=== PATIENT | female | born 1950 | race Caucasian/White ===

== ENCOUNTER 2017-09-01 07:36 | Day surgery (SDC) | payer OTHER ==
[~2017-09-01 07:36] MED LIST: Acetaminophen TAB* 325 MG PO PRN; Buffered Lidocaine 0.9% SYRIN* 5 ML/SYR SYRINGE INTRADERM ONE; Cyclopentolate 1% OPTH.SOL* 2 ML BTL ONE; Ketorolac 0.5% OPHTH (NF) 0.5 % 5 ML BTL ONE; Lidocaine 1% MPF* 2 ML VIAL ONE; Lidocaine 2% EPI 1:200000 MPF* 20 ML VIAL ONE; Midazolam* 1 MG/ML 2 ML VIAL (2 MG) ONE; Neomycin/Polymy/Dex OPTH.SUSP* MAXITROL 0.1% 5 ML ONE; Phenylephrine 2.5% OPTH.SOL* 2 ML BTL ONE; Povidone Iodine 5% OPTH* 30 ML BTL ONE; Proparacaine 0.5% OPHTH.SOL* 15 ML BTL ONE; acetaZOLAMIDE TAB* 250 MG ONE
[2017-09-01 09:42] VITALS: BP 114/56
--- NOTE | 2017-09-01 11:00 | OP ---
DATE OF OPERATION: 09/01/2017 - [facility] DATE OF : 1950. SURGEON: Chino Leon M.D. PREOPERATIVE DIAGNOSIS: Cataract right eye. POSTOPERATIVE DIAGNOSIS: Cataract right eye. OPERATIVE PROCEDURE: Extracapsular cataract extraction with intraocular lens implant right eye. DESCRIPTION OF PROCEDURE: The patient was brought to the operating room after being given 1/2% Alcaine with epinephrine drops in the preoperative area. The eye was prepped and draped in the usual sterile fashion. Sterile drape and eyelid speculum were placed. Again, topical 1/2% Alcaine with epinephrine was given. A paracentesis incision was made at the 9 o'clock position with the No.75 blade. Clear cornea incision 2.2 x 2.2-mm was created at the 12 o'clock position starting at the anterior limbus using the 2.2-mm keratome. The anterior chamber was irrigated with 0.4 mL of 1% non-preservative intracameral lidocaine and filled with DisCoVisc. A capsulorrhexis was completed using the cystotome and the Utrata forceps. Hydrodissection was performed with balanced salt solution. The lens nucleus was removed with the Phacoemulsification handpiece without incident. Cortex was removed with the irrigation-aspiration handpiece. The capsular bag was re-inflated using DisCoVisc and an [id number] implant was inserted with the shooter, oriented to the 14 degree meridian. Horizontal reference mckenna were made with the patient in the seated position in the preoperative area. The irrigation-aspiration handpiece was used to remove all residual DisCoVisc. The eye was refilled with balanced salt solution and the wound checked and found to be watertight. Topical Maxitrol drops were given. [id number]/[facility] #: [id number] [facility]
== END 2017-09-01 09:36 | disposition home or self-care (01) ==
LOC: OREAST 07:36
PROVIDERS: ATTEND Specialist
DX: H25.11 Age-related nuclear cataract, right eye (principal); H40.023 Open angle with borderline findings, high risk, bilateral; M81.0 Age-related osteoporosis without current pathological fracture; Z87.891 Personal history of nicotine dependence; M19.90 Unspecified osteoarthritis, unspecified site
CPT/HCPCS: A9270-GY; J2250; V2787

== ENCOUNTER 2017-09-08 07:12 | Day surgery (SDC) | payer OTHER ==
[~2017-09-08 07:12] MED LIST changes: -Cyclopentolate 1% OPTH.SOL* 2 ML BTL ONE; -Ketorolac 0.5% OPHTH (NF) 0.5 % 5 ML BTL ONE; -Lidocaine 1% MPF* 2 ML VIAL ONE; -Lidocaine 2% EPI 1:200000 MPF* 20 ML VIAL ONE; -Midazolam* 1 MG/ML 2 ML VIAL (2 MG) ONE; -Neomycin/Polymy/Dex OPTH.SUSP* MAXITROL 0.1% 5 ML ONE; -Phenylephrine 2.5% OPTH.SOL* 2 ML BTL ONE; -Povidone Iodine 5% OPTH* 30 ML BTL ONE; -Proparacaine 0.5% OPHTH.SOL* 15 ML BTL ONE; -acetaZOLAMIDE TAB* 250 MG ONE
[2017-09-08] MEDS ORDERED: Midazolam* 1 MG/ML 2 ML VIAL (2 MG) ONE ×2 (07:15→07:16)
[2017-09-08] MEDS ORDERED: Lidocaine 2% EPI 1:200000 MPF* 20 ML VIAL ONE (07:28)
[2017-09-08] MEDS ORDERED: Lidocaine 1% MPF* 2 ML VIAL ONE (07:28)
[2017-09-08] MEDS ORDERED: Cyclopentolate 1% OPTH.SOL* 2 ML BTL ONE (07:28)
[2017-09-08] MEDS ORDERED: acetaZOLAMIDE TAB* 250 MG ONE (07:28)
[2017-09-08] MEDS ORDERED: Proparacaine 0.5% OPHTH.SOL* 15 ML BTL ONE (07:29)
[2017-09-08] MEDS ORDERED: Neomycin/Polymy/Dex OPTH.SUSP* MAXITROL 0.1% 5 ML ONE (07:29)
[2017-09-08] MEDS ORDERED: Ketorolac 0.5% OPHTH (NF) 0.5 % 5 ML BTL ONE (07:29)
[2017-09-08] MEDS ORDERED: Phenylephrine 2.5% OPTH.SOL* 2 ML BTL ONE (07:29)
[2017-09-08] MEDS ORDERED: Povidone Iodine 5% OPTH* 30 ML BTL ONE (07:29)
[2017-09-08 09:59] VITALS: BP 117/67
--- NOTE | 2017-09-08 12:55 | OP ---
DATE OF OPERATION: 09/08/2017 - [facility] DATE OF : 1950. SURGEON: Chino Leon M.D. PREOPERATIVE DIAGNOSIS: Cataract left eye. POSTOPERATIVE DIAGNOSIS: Cataract left eye. OPERATIVE PROCEDURE: Extracapsular cataract extraction with intraocular lens implant left eye. DESCRIPTION OF PROCEDURE: The patient was brought to the operating room after being given 1/2% Alcaine with epinephrine drops in the preoperative area. The eye was prepped and draped in the usual sterile fashion. Sterile drape and eyelid speculum were placed. Again, topical 1/2% Alcaine with epinephrine was given. A paracentesis incision was made at the 3 o'clock position with the No.75 blade. Clear cornea incision 2.2 x 2.2-mm was created at the 6 o'clock position starting at the anterior limbus using the 2.2-mm keratome. The anterior chamber was irrigated with 0.4 mL of 1% non-preservative intracameral lidocaine and filled with DisCoVisc. A capsulorrhexis was completed using the cystotome and the Utrata forceps. Hydrodissection was performed with balanced salt solution. The lens nucleus was removed with the Phacoemulsification handpiece without incident. Cortex was removed with the irrigation-aspiration handpiece. The capsular bag was re-inflated using DisCoVisc and an [id number] [id number] implant was inserted with the shooter. The irrigation-aspiration handpiece was used to remove all residual DisCoVisc. The eye was refilled with balanced salt solution and the wound checked and found to be watertight. Topical Maxitrol drops were given. [id number]/[facility] #: [id number] [facility]
== END 2017-09-08 10:01 | disposition home or self-care (01) ==
LOC: OREAST 07:12
PROVIDERS: ATTEND Specialist
DX: H25.12 Age-related nuclear cataract, left eye (principal); H40.023 Open angle with borderline findings, high risk, bilateral; M35.00 Sjogren syndrome, unspecified; R94.6 Abnormal results of thyroid function studies; E78.5 Hyperlipidemia, unspecified; M81.0 Age-related osteoporosis without current pathological fracture; Z87.891 Personal history of nicotine dependence; M19.90 Unspecified osteoarthritis, unspecified site
CPT/HCPCS: A9270-GY; J2250; V2632

== ENCOUNTER 2018-10-25 08:59 | Emergency (ER) | payer OTHER ==
--- OUTSIDE RECORDS SUMMARY | 2018-10-25 09:15 | XMS REPORT | Continuity of Care Document ---
:1950 External Reference #:[id number] Author Name Chino Leon M.D. Address [address] [place] [address] Care Team Providers Name Role Phone Edwina Billings M.D. Primary Care Physician Unavailable Payers Date Identification Numbers Payment Provider Subscriber Policy Number: [id number] [employer] Ppo/Pos/Epo/Nap [employer] Number: [id number] [id number] PayID: [id number] [place] [address] Advance Directives Description No Information Available Problems Date Description Provider Status Onset: Headache Active Onset: 11/08/2015 Nuclear senile cataract Michelle Ford O.D. Active Onset: 11/08/2015 Tear film insufficiency Michelle Ford O.D. Active Onset: 11/08/2015 Myopia Michelle Ford O.D. Active Onset: 11/08/2015 Presbyopia Michelle Ford O.D. Active Onset: 11/08/2015 Regular astigmatism Michelle Ford O.D. Active Onset: 02/18/2017 Open-angle glaucoma - borderline Rajan Ibarra M.D. Active Onset: 07/20/2017 Open angle with borderline findings, Rajan Ibarra M.D. Active high risk, bilateral Onset: 09/09/2017 Presence of intraocular lens Chino Leon M.D. Active Onset: 10/04/2017 FH: Glaucoma Chino Leon M.D. Active Onset: 12/28/2017 Other secondary cataract, bilateral Chino Leon M.D. Active Family History Date Family Member(s) Observation Comments Father Cancer Father Glaucoma Mother Cancer First Sister Macular Pucker Social History Type Date Description Comments Sex Unknown Marital Status Legal Status: Occupation [employer] Work Status Retired ETOH Use Rarely consumes alcohol Tobacco Use Start: Unknown Patient has never smoked Recreational Drug Use Denies Drug Use Smoking Status Reviewed: 10/04/18 Patient has never smoked Allergies, Adverse Reactions, Alerts Date Description Reaction Status Severity Comments 10/04/2017 Codeine Active 11/04/2015 NKDA Inactive Medications Medication Date Status Form Strength Qnty SIG Indications Ordering Provider Similasan Dry 09/01/ Active Solution once a Chino Wisdom Eye Relief 2018 day Michelle Leon Vitamin D3 / Active Tablets 1000Unit Unknown 0000 Vitamin K2 / Active Capsules 100mcg Unknown 0000 Fish Oil / Active Capsules 1000mg 1 by Unknown 0000 mouth every day [employer] / Active Unknown Supplement 0000 Ciprofloxacin 08/27/ Hx Solution 0.3% 10ml instill Chino Wisdom HCL 2018 - one drop Arleo, 09/11/ in the M.D. 2018 right eye three times a day, start the day before surgery Ketorolac 08/27/ Hx Solution 0.5% 10ml 1 drop Chino Wisdom Tromethamine 2018 - left eye Arleo, 10/03/ twice a M.D. 2018 day Prednisolone 08/27/ Hx Suspension 1% 15ml 1 drop Chino Wisdom Acetate 2018 - left eye Arleo, 10/03/ twice a M.D. 2018 day Indocin / Hx Suspension 25mg/5ML Billings, 0000 - Edwina M.D. 2016 Immunizations Description No Information Available Vital Signs Date Vital Result Comment 01/17/2018 4:40pm BP Systolic 109 mmHg BP Diastolic 64 mmHg Heart Rate 78 /min Respiratory Rate 16 /min 01/03/2018 3:57pm BP Systolic 104 mmHg BP Diastolic 69 mmHg Heart Rate 80 /min Results Description No Information Available Procedures Date Code Description Status 01/17/2018 15009 Remove Secondary Cataract, Laser (Yag) Completed 01/03/2018 93179 Remove Secondary Cataract, Laser (Yag) Completed 12/28/2017 62947 Est Patient Intermediate Exam Completed 09/08/2017 66869 Extracapsular Cataract Extraction W/Intraocular Lens Completed 09/01/2017 05363 Extracapsular Cataract Extraction W/Intraocular Lens Completed 08/27/2017 69156 Ophthalmic Biometry Completed 08/27/2017 78212 Ophthalmic Biometry Completed 08/27/2017 34158 Scanning Computerized Opthalmic Diagnostic Posterior Seg Completed Retina 08/27/2017 66378 Computerized Corneal Topography Completed 07/29/2017 46880 Scanning Computerized Ophthalmic Diagnostic Imag Posterior Completed Seg On 07/29/2017 38528 Visual Field Exam Extended Completed 07/20/2017 44457 Est Patient Comprehensive Exam Completed 02/18/2017 84694 Est Patient Comprehensive Exam Completed 02/18/2017 41367 Determination Of Refractive State Completed 11/08/2015 51419 Determination Of Refractive State Completed 11/08/2015 57117 Est Patient Comprehensive Exam Completed 02/13/2014 72004 Est Patient Comprehensive Exam Completed 02/10/2012 37209 Determination Of Refractive State Completed 02/10/2012 77118 Est Patient Comprehensive Exam Completed 01/06/2010 09069 Determination Of Refractive State Completed 01/06/2010 68403 Est Patient Comprehensive Exam Completed 10/28/2007 48277 Determination Of Refractive State Completed 10/28/2007 07709 Est Patient Comprehensive Exam Completed 03/11/2006 18071 Determination Of Refractive State Completed 03/11/2006 39716 Est Patient Intermediate Exam Completed Encounters Type Date Location Provider Dx Diagnosis Office Visit 08/27/2017 Chino Leon, Chino Leon, H25.11 Age- related 11:30a , ankur Martinez nuclear cataract, right eye H25.12 Age-related nuclear cataract, left eye H40.023 Open angle with borderline findings, high risk, bilateral Office Visit 07/29/2017 1:15p Chino Tolentino H40.023 Open angle with MD Edward, ankur Ibarra M.D. borderline findings, high risk, bilateral H25.13 Age-related nuclear cataract, bilateral Plan of Treatment 10/04/2018 - Chino Leon M.D.H04.123 Dry eye syndrome of bilateral lacrimal glandsComments:Smoking can increase the risk of developing or worsening any eye related disease, as well as affect your overall health. If you are a smoker, we strongly recommend that you quit.If you are not a smoker, we strongly recommend that you do not start. Both of your eyes appear to be dry. Use artificial tears as directed. You can use the tears more often if you are reading a book or are on the computer,as we tend to blink less, making our eyes dry out more.[facility] offers a few items in our optical department to help alleviate dry eye symptoms. Systane and Refresh are good brands of tearsyou can use. You can pick these up at any pharmacy and they do not require a prescription.Follow up:1 Year Follow Up You can expect to have your eyes dilated at your next visit. If Dr. Leon orders any additional testing , it may require extra time. We recommend that you bring sunglasses, as dilationdrops often make you light sensitive until they wear off. We always recommend you bring someone to drive you home if you are uncomfortable driving with your eyes dilated. If you have any questions before your next visit, feel free to call our office at .A83.078 Family history of glaucomaComments:Having a family history of glaucoma is a risk factor for the possibility of you developing glaucoma.However, having a family history does not mean you show any signs of glaucoma now, or will develop glaucoma in the future. It is important that you have a dilated eye exam annually, because even thoughglaucoma is a treatable disease, it does not present itself with any signs or symptoms.Z96.1 Presence of intraocular lensComments:The artificial lens implants in both eyes appear to be stable at this time.
--- NOTE | 2018-10-25 10:06 | ED ---
Back Pain - HPI Summary HPI Summary: A 68 y/o F presents to ED with c/o severe low, central back pain onset 0030 that woke her from sleep. She took Alleve at 0200 and used a heating pad, to no relief. The pain is constant. She states she is generally healthy, and denies any known aortic issues. Associated sx: urinary and bowel frequency, chills. Denies: fever, hematuria, incontinence. She notes that yesterday she was holding her grandchild, and the day before that she was in the car for several hours. Allergies discussed. - History of Current Complaint Chief Complaint: EDBackInjuryPain Stated Complaint: WOKE UP WITH EXTREME LOWER BACK PAIN PER PT Time Seen by Provider: 10/25/18 09:46 Hx Obtained From: Patient, Family/Archivist Political History, Medical Records Onset/Duration: Sudden Onset, Lasting Hours, Still Present Onset/Duration: Started Hours Ago, Atraumatic, Still Present Timing: Constant Back Pain Location: Is Discrete @ - low midline back Severity Initially: Severe Severity Currently: Severe Pain Intensity: 8 Pain Scale Used: 0-10 Numeric Aggravating Symptom(s): Nothing Associated Signs And Symptoms: Positive: Other - pos: chills, urinary/bowel frequency. neg: hematuria. Negative: Fever, Bladder Incontinence, Bowel Incontinence - Allergies/Home Medications Allergies/Adverse Reactions: Allergies Allergy/AdvReac Type Severity Reaction Status Date / Time codeine Allergy Nausea And Verified 10/25/18 09:08 Vomiting PMH/Surg Hx/FS Hx/Imm Hx Previously Healthy: No History: Reports: Hx Kidney Stones Musculoskeletal History: Reports: Hx Arthritis - left hand Sensory History: Reports: Hx Cataracts - both, Hx Contacts or Glasses - glasses Denies: Hx Hearing Aid Opthamlomology History: Reports: Hx Cataracts - both, Hx Contacts or Glasses - glasses Neurological History: Reports: 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 tonsillectomy as a child. right thumb repair 1976. tubal ligation 1984 approx Hx Anesthesia Reactions: Yes - gets severe nause from general anesthesia Infectious Disease History: No Infectious Disease History: Denies: Traveled Outside the [place] in Last 30 Days - Family History Family History: Breast CA: grandmother - Social History Occupation: Retired Lives: With Family Alcohol Use: Occasionally Hx Substance Use: No Substance Use Type: Reports: None Hx Tobacco Use: Yes Smoking Status (MU): Former Smoker Amount Used/How Often: social smoker Review of Systems Positive: Chills. Negative: Fever Positive: frequency - urinary and bowel. Negative: hematuria, incontinence Musculoskeletal: Other - pos: lower back pain All Other Systems Reviewed And Are Negative: Yes Physical Exam - Summary Physical Exam Summary: GENERAL: Patient is a well-developed and nourished female who is lying comfortable in the stretcher. Patient is not in any acute respiratory distress. HEAD AND FACE: Normocephalic EYES: PERRLA, EOMI x 2. EARS: Hearing grossly intact. MOUTH: Oropharynx within normal limits. NECK: Supple, trachea is midline, no adenopathy, no JVD, no carotid bruit. CHEST: Symmetric, no tenderness at palpation LUNGS: Clear to auscultation bilaterally. No wheezing or crackles. CVS: Regular rate and rhythm, S1 and S2 present, no murmurs or gallops appreciated. ABDOMEN: Soft, non-tender. Bowel sounds are normal. No abdominal abnormal pulsations. EXTREMITIES: Full ROM in all major joints, no edema, no cyanosis or clubbing. Unable to reproduce back tenderness. NEURO: Alert and oriented x 3. No acute neurological deficits. Speech is normal and follows commands. SKIN: Dry and warm Triage Information Reviewed: Yes Vital Signs On Initial Exam: Initial Vitals Temp Pulse Resp BP Pulse Ox 98.6 F 83 18 151/87 99 10/25/18 09:04 10/25/18 09:04 10/25/18 09:04 10/25/18 09:04 10/25/18 09:04 Vital Signs Reviewed: Yes Diagnostics - Vital Signs Vital Signs Temp Pulse Resp BP Pulse Ox 10/25/18 09:04 98.6 F 83 18 151/87 99 - Laboratory Result Diagrams: 10/25/18 11:24 10/25/18 11:24 Lab Statement: Any lab studies that have been ordered have been reviewed, and results considered in the medical decision making process. - CT ABD/PEL CT CT Interpretation Completed By: Radiologist Summary of CT Findings: IMPRESSION: Left hydronephrosis and hydroureter with a 5 mm calculi wrist above the left ureterovesicular junction. Right kidney is unremarkable. The remainder of the abdomen and pelvis is unremarkable. Calcified granuloma in the right lung base is noted. ED provider has reviewed this report. Re-Evaluation - Re-Evaluation 1 Re-Evaluation Time: 11:03 Change: Unchanged Comment: Discussing UA results. 2 Re-Evaluation Time: 12:17 Change: Unchanged Comment: Patient is still having pain, will order morphine. 3 Re-Evaluation Time: 13:10 Change: Unchanged Comment: Pt still has the same level of pain as previous re-eval. 4 Re-Evaluation Time: 14:18 Change: Unchanged Comment: Pain is still present. 5 Re-Evaluation Time: 15:15 Change: Improved Comment: Pt's pain has improved after tramadol. Back Pain Course/Dx - Course Course Of Treatment: Pt is a 68 y/o F presenting with severe low, central back pain onset 0030 this date that woke her from sleep. She took Alleve at 0200 at home to no relief. UA results show 1+ protein, trace ketones, 2+ blood, 2+ RBC , ascorbic acid present. ABD/PEL CT shows "Left hydronephrosis and hydroureter with a 5 mm calculi wrist above the left ureterovesicular junction. Right kidney is unremarkable. The remainder of the abdomen and pelvis is unremarkable. Calcified granuloma in the right lung base is noted.". The patient will be discharged. I discussed results with patient and she reports feeling better. She is hemodynamically stable and safe for discharge. Strict return precautions given and she will otherwise follow up with her PCP and urology. - Diagnoses Provider Diagnoses: Kidney stone Discharge - Sign-Out/Discharge Documenting (check all that apply): Patient Departure - D/C Patient Received Moderate/Deep Sedation with Procedure: No - Discharge Plan Condition: Stable Disposition: HOME Prescriptions: Ondansetron ODT TAB* [Zofran 4 MG Odt TAB*] 4 mg PO Q8H PRN #12 tab.odt PRN Reason: Nausea oxyCODONE/Acetamin 5/325 MG* [Percocet 5/325 TAB*] 1 tab PO Q6H PRN #15 tab MDD 4 PRN Reason: Pain Tamsulosin HCl [Flomax] 0.4 mg PO DAILY #30 cap.er.24h Patient Education Materials: Oxycodone/Acetaminophen (By mouth), Ondansetron ( By mouth), Tamsulosin (By mouth), Kidney Stones (ED) Referrals: Edwina Billings MD [Primary Care Provider] - 3 Days Ozzy Russell MD [Medical Doctor] - 3 Days Additional Instructions: Follow up with Dr. Russell, urology, in 3 days as well as with your primary care provider. RETURN TO THE EMERGENCY DEPARTMENT FOR CHANGING OR WORSENING SYMPTOMS. - Billing Disposition and Condition Condition: STABLE Disposition: Home - Attestation Statements Document Initiated by Guerreroiblynne: Yes Documenting Scribe: Olivia Almaraz Provider For Whom Scribe is Documenting (Include Credential): Dr. Nimral Alvarez MD Scribe Attestation: Lindsey, Olivia Almaraz, scribed for Dr. Nirmal Alvarez MD on 10/25/18 at 1819. Scribe Documentation Reviewed: Yes Provider Attestation: The documentation as recorded by the Olivia aldridge accurately reflects the service I personally performed and the decisions made by me, Dr. Nirmal Alvarez MD Status of Scribe Document: Viewed
[2018-10-25] MEDS ORDERED: traMADol TAB* 50 MG PO ONE (10:39)
[2018-10-25 10:52] LABS: Urine Appearance Cloudy; Urine Bacteria Absent (Absent); Urine Bilirubin Negative (Negative); Urine Blood 2+ (Negative); Urine Color Yellow; Urine Glucose Negative (Negative); Urine Ketones Trace (Negative); Urine Nitrite Negative (Negative); Urine Protein 1+(30 mg/dL) (Negative); Urine Red Blood Cell 2+(6-10/hpf) (Absent); Urine Specific Gravity 1.021 (1.010-1.030); Urine Urobilinogen Negative (Negative); Urine White Blood Cell Trace(0-5/hpf) (Absent)
[2018-10-25] MEDS ORDERED: NS 0.9% 1000 ML** 1,000 ML IV ONE ×2 (10:59→12:50)
[2018-10-25] MEDS ORDERED: Ondansetron INJ* 2 MG/ML VIAL IV ONE ×2 (11:00→12:15)
[2018-10-25] MEDS ORDERED: fentaNYL* 50 MCG/ML 2 ML VIAL (100 MCG VIAL) IV SLOW PU ONE (11:01)
[2018-10-25 11:36] LABS: ABS Basophils 0.1 10^3/ul (0-0.2); ABS Eosinophils 0 10^3/ul (0-0.6); ABS Lymphocytes 0.9 10^3/ul (1.0-4.8); ABS Monocytes 0.6 10^3/ul (0-0.8); ABS Neutrophils 9.1 10^3/ul (1.5-7.7); ABS Nucleated RBC 0 10^3/ul; Eosinophil % 0.1 %; Hematocrit 37 % (35-47); Hemoglobin 12.5 g/dl (12.0-16.0); Lymphocyte % 8.8 %; Mean Corpuscular HGB Conc 33 g/dl (31-36); Mean Corpuscular Hemoglobin 30 pg (27-31); Mean Corpuscular Volume 90 fL (80-97); Mean Platelet Volume 7.9 fL (7.4-10.4); Nucleated Red Blood Cells % 0; Platelet Count 238 10^3/ul (150-450); Red Blood Count 4.14 10^6/ul (4.00-5.40); Red Cell Distribution Width 13 % (10.5-15); White Blood Count 10.8 10^3/ul (3.5-10.8)
[2018-10-25 11:50] LABS: Albumin/Globulin Ratio 1.4 (1-3); C Reactive Protein 1.03 mg/L (<8.01); Calcium 9.1 mg/dL (8.6-10.3); EGFR African American 37.2 (>60); EGFR Non-African American 30.8 (>60); Globulin 2.9 g/dL (2-4); Potassium 4.1 mmol/L (3.5-5.0); Total Bilirubin 0.5 mg/dL (0.2-1.0); Total Protein 6.9 g/dL (6.4-8.9)
[2018-10-25] MEDS ORDERED: Morphine 10 MG/ML VIAL (1 ml) IV ONE (12:14)
[2018-10-25] MEDS: HYDROmorphone INJ* 0.5 MG/0.5 ML SYRINGE IV SLOW PU ONE ×2 (13:20→14:49)
[2018-10-25] MEDS ORDERED: Ketorolac INJ* 30 MG/ML 1 ML VIAL IV PUSH ONE (14:23)
[2018-10-25 15:43] VITALS: BP 108/76
== END 2018-10-25 15:42 | disposition home or self-care (01) ==
LOC: ED 08:59
DX: N13.2 Hydronephrosis with renal and ureteral calculous obstruction (principal); Z87.442 Personal history of urinary calculi; Z88.5 Allergy status to narcotic agent; Z87.891 Personal history of nicotine dependence
CPT/HCPCS: 36415; 74176; 80053; 81003; 81015; 83605; 83690; 85025; 86140; 87086; 96361; 96374; 96375; 96376; 99283; A9270-GY; J1170; J1885; J2270; J2405; J3010